=== PATIENT | female | born 1975 | race Two or more races ===

== ENCOUNTER 2017-12-02 17:09 | Emergency (ER) | payer OTHER ==
[2017-12-02] MEDS ORDERED: ONDANSETRON 4 MG/2 ML VIAL IVP ONE (18:42)
[2017-12-02] MEDS ORDERED: NS 1,000 ML IV ONE (18:54)
--- NOTE | 2017-12-02 18:59 | EDPHY ---
H & P Time Seen by Provider: 12/02/17 18:17 HPI/ROS: CHIEF COMPLAINT: Vaginal bleeding HISTORY OF PRESENT ILLNESS: Patient is a 39-year-old female with a history of vaginal bleeding in the past. She has had a bilateral tubal ligation. She has been placed on hormone therapy for intermittent vaginal bleeding. This episode of bleeding started 3 weeks ago. It has been fairly persistent. She is currently using 3 pads an hour. She is mildly lightheaded. No dizziness. No chest pain or shortness of breath. No abdominal pain. No nausea or vomiting. No dysuria or frequency. REVIEW OF SYSTEMS: My complete review of systems is negative except as mentioned in the HPI. Past Medical/Surgical History: Includes vaginal bleeding Past surgical history: Includes tubal ligation Social history: Patient does not smoke Smoking Status: Never smoked Physical Exam: 36.9, 98/80, 89, 16, 98% on room air GENERAL: Well-appearing, in no acute distress, alert. HEENT: Eyes normal to inspection, normal pharynx, no signs of dehydration. NECK: No thyromegaly, no lymphadenopathy, supple. RESPIRATORY: Clear to auscultation bilaterally, no rales, rhonchi or wheezing. CVS: Regular rate and rhythm, no rubs, murmurs, or gallops. ABDOMEN: Soft, nontender, nondistended, no organomegaly. BACK: Normal to inspection, no CVA tenderness. SKIN: Normal color, no rash, warm, dry. No pallor. EXTREMITIES: No pedal edema, no calf tenderness, no joint swelling. NEURO/PSYCH: Alert and oriented x3, normal mood and affect, normal motor sensory exam. Constitutional: Initial Vital Signs Temperature (C) 36.9 C 12/02/17 17:16 Heart Rate 89 12/02/17 17:16 Respiratory Rate 16 12/02/17 17:16 Blood Pressure 98/80 L 12/02/17 17:16 O2 Sat (%) 98 12/02/17 17:16 O2 Delivery Mode Room Air Allergies/Adverse Reactions: No Known Allergies Allergy (Unverified 09/19/15 12:35) Home Medications: Medication Instructions Recorded NK [No Known Home Meds] 09/19/15 Medical Decision Making - Diagnostics Imaging Results: Imaging Impressions Pelvic/Renal Ultrasound 12/02/17 18:55 Impression: 1. Ill-defined endometrium with mobile echogenic hemorrhagic debris. 2. Myometrial heterogeneity without a discretely measurable fibroid. 3. There is a 3.0 cm benign-appearing right ovarian cyst, with no evidence of torsion or free fluid. 4. Mild left-sided pelvic venous congestion. Findings were discussed with MARLA VALDEZ MD at 21:23, on 12/02/2017. ED Course/Re-evaluation: In the emergency department I discussed possible etiologies with the patient. I answered all her questions. qualitative field project manager was used. An IV was placed. Laboratory studies were ordered. I reviewed the patient's laboratory studies. The patient is anemic with hematocrit of 32. I compared this with a previous hematocri. It was 25. I rechecked the patient while here. She stated she had no pain. She was not lightheaded or dizzy. Ultrasound: Please refer the dictated report. Patient has a ill-defined endometrium with mobile echogenic hemorrhagic debris. There is also myometrial heterogeneity without a discrete measurable fibroid. There is a 3.0 cm benign appearing right ovarian cyst. No ovarian torsion or free fluid. Mild left- sided pelvic venous congestion. In the emergency department her repeat hematocrit was 29. I discussed the case with Gynecology. Pelvic exam: Patient has a normal external pelvic exam. No lesions. Speculum exam shows mild bleeding. Small amount of blood from the cervix. No lesions or mass. Bimanual exam: Normal, no tenderness to palpation bilaterally, normal ovaries bilaterally, normal uterus. I discussed disposition options with the patient. I recommended admission. Patient would prefer to be discharged home. I discussed the risks and benefits of this. The patient was given warnings. She will return with worsening symptoms. I discussed case with Dr. [place]. She will see the patient in follow-up. Differential Diagnosis: My differential includes but is not limited to vaginal bleeding, mass, malignancy, , anemia, coagulopathy - Data Points Laboratory Results: Laboratory Results 12/02/17 18:30 12/02/17 18:30 12/02/17 12/02/17 12/02/17 22:39 21:35 18:30 WBC RBC Hgb POC Hgb 9.9 gm/dL L gm/dL (12.6-16.3) Hct POC Hct 29 % L % (38-47) MCV MCH MCHC RDW Plt Count MPV Neut % (Auto) Lymph % (Auto) [place] % (Auto) Eos % (Auto) Baso % (Auto) Nucleat RBC Rel Count Absolute Neuts (auto) Absolute Lymphs (auto) Absolute Monos (auto) Absolute Eos (auto) Absolute Basos (auto) Absolute Nucleated RBC Immature Gran % Immature Gran # PT INR APTT POC Sodium 142 mEq/L mEq/L (135-145) Sodium POC Potassium 3.2 mEq/L L mEq/L (3.3-5.0) Potassium POC Chloride 107 mEq/L mEq/L (97-110) Chloride Carbon Dioxide Anion Gap POC BUN 15 mg/dL mg/dL (7-23) BUN Creatinine POC Creatinine 0.6 mg/dL mg/dL (0.6-1.0) Estimated GFR Glucose POC Glucose 88 mg/dL mg/dL (70-100) Calcium Beta HCG, Qual NEGATIVE Urine Color Pending Urine Appearance Pending Urine pH Pending Ur Specific [place] Pending Urine Protein Pending Urine Ketones Pending Urine Blood Pending Urine Nitrate Pending Urine Bilirubin Pending Urine Urobilinogen Pending Ur Leukocyte Esterase Pending Urine RBC Pending Urine WBC Pending Ur Epithelial Cells Pending Urine Glucose Pending 12/02/17 12/02/17 12/02/17 18:30 18:30 18:30 WBC 7.68 10^3/uL 10^3/uL (3.80-9.50) RBC 4.06 10^6/uL L 10^6/uL (4.18-5.33) Hgb 10.2 g/dL L g/dL (12.6-16.3) POC Hgb Hct 32.9 % L % (38.0-47.0) POC Hct MCV 81.0 fL L fL (81.5-99.8) MCH 25.1 pg L pg (27.9-34.1) MCHC 31.0 g/dL L g/dL (32.4-36.7) RDW 15.6 % H % (11.5-15.2) Plt Count 277 10^3/uL 10^3/uL (150-400) MPV 11.5 fL fL (8.7-11.7) Neut % (Auto) 55.6 % % (39.3-74.2) Lymph % (Auto) 37.5 % % (15.0-45.0) Harmon % (Auto) 4.7 % % (4.5-13.0) Eos % (Auto) 1.0 % % (0.6-7.6) Baso % (Auto) 0.8 % % (0.3-1.7) Nucleat RBC Rel Count 0.0 % % (0.0-0.2) Absolute Neuts (auto) 4.27 10^3/uL 10^3/uL (1.70-6.50) Absolute Lymphs (auto) 2.88 10^3/uL 10^3/uL (1.00-3.00) Absolute Monos (auto) 0.36 10^3/uL 10^3/uL (0.30-0.80) Absolute Eos (auto) 0.08 10^3/uL 10^3/uL (0.03-0.40) Absolute Basos (auto) 0.06 10^3/uL 10^3/uL (0.02-0.10) Absolute Nucleated RBC 0.00 10^3/uL 10^3/uL (0-0.01) Immature Gran % 0.4 % % (0.0-1.1) Immature Gran # 0.03 10^3/uL 10^3/uL (0.00-0.10) PT 13.2 SEC SEC (12.0-15.0) INR 0.98 (0.83-1.16) APTT 26.5 SEC SEC (23.0-38.0) POC Sodium Sodium 140 mEq/L mEq/L (135-145) POC Potassium Potassium 3.7 mEq/L mEq/L (3.5-5.2) POC Chloride Chloride 105 mEq/L mEq/L (97-110) Carbon Dioxide 25 mEq/l mEq/l (22-31) Anion Gap 10 mEq/L mEq/L (8-16) POC BUN BUN 15 mg/dL mg/dL (7-23) Creatinine 0.6 mg/dL mg/dL (0.6-1.0) POC Creatinine Estimated GFR > 60 Glucose 90 mg/dL mg/dL (70-100) POC Glucose Calcium 9.0 mg/dL mg/dL (8.5-10.4) Beta HCG, Qual Urine Color Urine Appearance Urine pH Ur Specific [place] Urine Protein Urine Ketones Urine Blood Urine Nitrate Urine Bilirubin Urine Urobilinogen Ur Leukocyte Esterase Urine RBC Urine WBC Ur Epithelial Cells Urine Glucose Medications Given: Discontinued Medications Sodium Chloride (Ns) 1,000 mls @ 0 mls/hr IV ONCE ONE PRN Reason: Wide Open Stop: 12/02/17 18:55 Last Admin: 12/02/17 18:56 Dose: 1,000 mls Ondansetron HCl (Zofran) 4 mg IVP EDNOW ONE Stop: 12/02/17 18:43 Last Admin: 12/02/17 18:55 Dose: 4 mg Point of Care Test Results: 12/02/17 21:35 POC Sodium 142 POC Potassium 3.2 L POC Chloride 107 POC BUN 15 POC Creatinine 0.6 POC Glucose 88 Departure - Departure Disposition: Home, Routine, Self-Care Clinical Impression: Vaginal bleeding Condition: Good Instructions: Vaginal Discharge (ED) Additional Instructions: Return to the emergency department with increased bleeding, lightheadedness, dizziness, shortness of breath or chest pain. You been given follow-up with the on-call residential appliance repair technician, Dr. Colorado Referrals: Viry Latham MD [Primary Care Provider] - As per Instructions Yanira Colorado MD [Medical Doctor] - 2-3 days, call for appt.
[2017-12-02 19:01] LABS: PLATELET COUNT 277 10^3/uL (150-400)
[2017-12-02 19:13] LABS: INR 0.98 (0.83-1.16); PROTIME(PATIENT) 13.2 SEC (12.0-15.0)
[2017-12-02 23:05] VITALS: BP 111/78
== END 2017-12-02 23:16 | disposition home or self-care (01) ==
DX: N93.9 Abnormal uterine and vaginal bleeding, unspecified (principal)
CPT/HCPCS: 82947-QW; 96374; J2405

== ENCOUNTER 2017-12-05 04:41 | Observation (INO) | payer OTHER ==
--- NOTE | 2017-12-05 04:59 | EDPHY ---
H & P Stated Complaint: Vaginal bleeding x3wks Time Seen by Provider: 12/05/17 04:47 HPI/ROS: HPI CHIEF COMPLAINT: Vaginal bleeding x3 weeks HISTORY OF PRESENT ILLNESS: Patient is a 42-year-old female she was recently here in the emergency room 3 days ago and seen evaluated for vaginal bleeding. At that time she was going through 3 pads an hour. Her hemoglobin at that time was 10.2/32.9, she had a vaginal exam as well as a pelvic ultrasound. She was offered admission however declined went home. She now presents back to the emergency room with ongoing vaginal bleeding. She is not on any blood thinners. She denies chest pain or shortness of breath. However patient does state that she feels globally weak. Fatigued. Additionally she reports that her bleeding has gotten more brisk. She states that at 1 point she was using 2 pads every 10 min. She woke up this evening with further heavy vaginal bleeding without any pelvic pain or abdominal pain. States she passed clot and blood ran down her legs. This prompted her to come to the emergency room. Of note this patient is Colombian-speaking only. Search Manager was used for history review of systems. Past Medical History: ?Dysfunctional uterine bleeding Past Surgical History: Tubal ligation Social History: Denies drugs alcohol tobacco products Family History: ROS REVIEW OF SYSTEMS: A comprehensive 10 point review of systems is otherwise negative aside from elements mentioned in the history of present illness. Exam Constitutional appears nontoxic, triage nursing summary reviewed, vital signs reviewed, awake/alert. Vital signs stable at triage Eyes normal conjunctivae and sclera, EOMI, PERRLA. HENT normal inspection, atraumatic, moist mucus membranes, no epistaxis, neck supple/ no meningismus, no raccoon eyes. Respiratory clear to auscultation bilaterally, normal breath sounds, no respiratory distress, no wheezing. Cardiovascular rate normal, regular rhythm, no murmur, no edema, distal pulses normal. Gastrointestinal soft, non-tender, no rebound, no guarding, normal bowel sounds, no distension, no pulsatile mass. Genitourinary no CVA tenderness. Musculoskeletal no midline vertebral tenderness, full range of motion, no calf swelling, no tenderness of extremities, no meningismus, good pulses, neurovascularly intact. Skin pink, warm, & dry, no rash, skin atraumatic. Neurologic awake, alert and oriented x 3, AAOx3, moves all 4 extremities equally, motor intact, sensory intact, CN II-XII intact, normal cerebellar, normal vision, normal speech. Psychiatric normal mood/affect. Heme/Lymph/Immune no lymphadenopathy. Differential Diagnosis: Includes but is not limited to in a particular order dysfunctional uterine bleeding, fibroid all bleeding, ectopic , acute blood loss anemia Medical Decision Making: Plan for this patient repeat blood work IV establishment with full media monitor, type and screen, good IV access, pelvic exam, pelvic ultrasound will consult OBGYN. Re-evaluation: 0532: Blood work is reviewed. H&H are low 6.6/21. Given how low this is in a rapid loss from previous ER visit 3 days ago I will consult OBGYN. 0538: Spoke with OBGYN doctor Stanislav, discussed the case in detail with her. I do recommend she gets admitted for vaginal bleeding. Dr. Colorado will come and see and evaluate her. 0546: Vital signs are stable. She is not hypotensive. She has 2 large-bore IVs. She has been typed and screened us pelvis: Small right ovarian cyst. Free fluid in the uterus. Endometrium 7 mm. Otherwise unremarkable pelvic ultrasound. Called to me by Dr. Harkins. Patient be admitted to the hospital for vaginal bleeding with a low H&H. She may need blood transfusion. At this time she is not hypotensive. She is resting comfortably without any abdominal pain. Spoke with the OBGYN on-call Dr. Colorado who agrees to admit. I did perform a external vaginal exam. No significant bleeding at this time. Mis RN at bedside. Source: Patient - Personal History LMP (Females 10-55): Now Current Tetanus Diphtheria and Acellular Pertussis (TDAP): Yes - Medical/Surgical History Hx Asthma: No Hx Chronic Respiratory Disease: No Hx Diabetes: No Hx Cardiac Disease: No Hx Renal Disease: No Hx Cirrhosis: No Hx Alcoholism: No Hx HIV/AIDS: No Hx Splenectomy or Spleen Trauma: No Other PMH: "surgery to not have children" - Social History Smoking Status: Never smoked Constitutional: Initial Vital Signs Temperature (C) 36.8 C 12/05/17 04:42 Heart Rate 89 12/05/17 04:42 Respiratory Rate 18 12/05/17 04:42 Blood Pressure 112/66 12/05/17 04:42 O2 Sat (%) 99 12/05/17 04:42 O2 Delivery Mode Room Air Allergies/Adverse Reactions: No Known Allergies Allergy (Verified 12/05/17 04:42) Home Medications: Medication Instructions Recorded Herbals/Supplements -Info Only 1 ea PO DAILY 12/05/17 Hydrocodone/APAP 5/325 [[place] 1 - 2 tab PO Q4HRS PRN #14 tab 12/05/17 5/325 (*)] Ibuprofen [Motrin (*)] 200 mg PO DAILY PRN 12/05/17 Iron Polysacch/Iron Heme Polyp 28 mg PO TID #90 tab 12/05/17 [Bifera] Medical Decision Making - Diagnostics Imaging Results: Imaging Impressions Pelvic/Renal Ultrasound 12/05/17 04:49 Impression: 1. 2.4 cm simple appearing cyst left ovary without evidence for torsion. 2. Minimal hemorrhagic debris in the endometrial cavity. Results called and discussed with Zane Montalvo MD at 12/05/2017 0548 hours. Final interpretation concurs with initial preliminary operations engineer radiologist impression. - Data Points Laboratory Results: Laboratory Results 12/05/17 05:00 12/05/17 05:00 12/05/17 05:00 Patient ABO/Rh O POSITIVE Antibody Screen NEGATIVE Crossmatch IS Only See Detail Medications Given: Discontinued Medications Acetaminophen (Tylenol) 650 mg PO Q4HRS PRN PRN Reason: Pain, Mild/Fever, Can Take PO Stop: 06/03/18 07:24 Last Admin: 12/05/17 20:13 Dose: 650 mg Hydrocodone Bitart/Acetaminophen ([place] 5/325) 1 - 2 tab PO Q4HRS PRN PRN Reason: Pain, Moderate Able to Take PO Stop: 12/15/17 14:33 Last Admin: 12/05/17 18:41 Dose: 1 tab Belladonna Alkaloids/Opium (B & O) Confirm Administered Dose 1 each [place] .STK-MED ONE Stop: 12/05/17 13:46 Last Admin: 12/05/17 13:50 Dose: 1 each Bupivacaine HCl (Sensorcaine 0.25% Sdv) Confirm Administered Dose 30 ml .ROUTE .STK-MED ONE Stop: 12/05/17 11:41 Last Admin: 12/05/17 14:34 Dose: 30 ml Epinephrine HCl (Epinephrine) Confirm Administered Dose 1 mg .ROUTE .STK-MED ONE Stop: 12/05/17 11:42 Last Admin: 12/05/17 13:34 Dose: 1 mg Tranexamic Acid 1,300 mg/ (Sodium Chloride) 63 mls @ 300 mls/hr IV ONCALL ONE Stop: 12/05/17 07:15 Last Admin: 12/05/17 15:41 Dose: Not Given Lactated Ringer's (Lr) 1,000 mls @ 0 mls/hr IV ONCE ONE PRN Reason: As Directed Stop: 12/05/17 12:04 Last Admin: 12/05/17 18:38 Dose: Not Given Oxycodone HCl (Oxycontin) 10 mg PO ONCALL ONE Stop: 12/05/17 11:59 Last Admin: 12/05/17 15:42 Dose: Not Given Polysaccharide Iron Complex (Bifera) 28 mg PO TID [facility] Stop: 06/03/18 15:59 Last Admin: 12/05/17 18:05 Dose: 28 mg Departure - Departure Disposition: [facility] Clinical Impression: Vaginal bleeding, Blood loss anemia Condition: Fair
[2017-12-05 05:24] LABS: PLATELET COUNT 242 10^3/uL (150-400)
[2017-12-05 05:28] LABS: INR 0.99 (0.83-1.16); PROTIME(PATIENT) 13.3 SEC (12.0-15.0)
[2017-12-05] MEDS ORDERED: NS IV ONE (07:03)
[2017-12-05] MEDS ORDERED: TRANEXAMIC ACID IV ONE (07:03)
--- NOTE | 2017-12-05 07:21 | PDGENHP ---
History and Physical - Chief Complaint vaginal bleeding - History of Present Illness 42 year old here with vaginal bleeding. Sheet Manufacturing Supervisor over the phone used - delay and difficult. She was seen in the ED 3 d ago for vaginal bleeding, and her H/H were 10.2/32.9 , today they are 6.6/21.7. Per pt and - she had irregular bleeding, so had Nexplanon placed at [facility] 05/2017. Since then, has had mostly monthly menses, until middle of October - menses started and has not stopped. Currently is having a lot of cramping. Had a TL with her last C/S for contraception. History Information - Allergies/Home Medication List Allergies/Adverse Reactions: No Known Allergies Allergy (Verified 12/05/17 04:42) Home Medications: Ibuprofen 12/05/17 [Last Taken Unknown] I have personally reviewed and updated: medical history, social history, surgical history Past Medical History: noncontributory. Denies any medical - Past Medical History no pertinent PMH - Surgical History Additional surgical history: C/S x 2, last one with tubal ligation - Social History Smoking Status: Never smoked Alcohol Use: Occasionally Drug Use: None Additional social history: , 4 living children between age 7 and 20, one child Review of Systems Review of Systems: ROS: 10pt was reviewed & negative except for what was stated in HPI & below Physical Exam Physical Exam: gen - pleasant, NAD, Malagasy speaking only pelvic - NEFG vagina - pink, no lesions, 3cm clot present cervix - parous, no lesions, sm amt blood through os Uterus - difficult to outline 2/2 body habitus adnexa - not palpable due to body habitus L arm - Nexplanon palpable in normal location subQ US - see report, images reviewed - empty uterus, endometrial stripe 8mm 1.7cm R ov cyst Temp Pulse Resp BP Pulse Ox 36.8 C 81 18 100/61 98 12/05/17 06:22 12/05/17 06:22 12/05/17 06:22 12/05/17 06:22 12/05/17 06:22 Constitutional: no apparent distress Ears, Nose, Mouth, Throat: moist mucous membranes Cardiovascular: regular rate and rhythym Respiratory: no respiratory distress Gastrointestinal: normoactive bowel sounds Genitourinary: no bladder fullness Skin: warm, normal color Musculoskeletal: full muscle strength Psychiatric: interacting appropriately Lab Data & Imaging Review 12/05/17 05:00 12/05/17 05:00 WBC 3.99 10^3/uL (3.80-9.50) 12/05/17 05:00 RBC 2.63 10^6/uL (4.18-5.33) L 12/05/17 05:00 Hgb 6.6 g/dL (12.6-16.3) L 12/05/17 05:00 Hct 21.7 % (38.0-47.0) L D 12/05/17 05:00 MCV 82.5 fL (81.5-99.8) 12/05/17 05:00 MCH 25.1 pg (27.9-34.1) L 12/05/17 05:00 MCHC 30.4 g/dL (32.4-36.7) L 12/05/17 05:00 RDW 16.1 % (11.5-15.2) H 12/05/17 05:00 Plt Count 242 10^3/uL (150-400) 12/05/17 05:00 MPV 11.5 fL (8.7-11.7) 12/05/17 05:00 Neut % (Auto) 39.2 % (39.3-74.2) L 12/05/17 05:00 Lymph % (Auto) 51.9 % (15.0-45.0) H 12/05/17 05:00 [place] % (Auto) 5.3 % (4.5-13.0) 12/05/17 05:00 Eos % (Auto) 2.3 % (0.6-7.6) 12/05/17 05:00 Baso % (Auto) 1.0 % (0.3-1.7) 12/05/17 05:00 Nucleat RBC Rel Count 0.0 % (0.0-0.2) 12/05/17 05:00 Absolute Neuts (auto) 1.57 10^3/uL (1.70-6.50) L 12/05/17 05:00 Absolute Lymphs (auto) 2.07 10^3/uL (1.00-3.00) 12/05/17 05:00 Absolute Monos (auto) 0.21 10^3/uL (0.30-0.80) L 12/05/17 05:00 Absolute Eos (auto) 0.09 10^3/uL (0.03-0.40) 12/05/17 05:00 Absolute Basos (auto) 0.04 10^3/uL (0.02-0.10) 12/05/17 05:00 Absolute Nucleated RBC 0.00 10^3/uL (0-0.01) 12/05/17 05:00 Immature Gran % 0.3 % (0.0-1.1) 12/05/17 05:00 Immature Gran # 0.01 10^3/uL (0.00-0.10) 12/05/17 05:00 Platelet Estimate ADEQUATE (ADEQ) 12/05/17 05:00 Hypochromasia 2+ H 12/05/17 05:00 Microcytic Cells 1+ H 12/05/17 05:00 PT 13.3 SEC (12.0-15.0) 12/05/17 05:00 INR 0.99 (0.83-1.16) 12/05/17 05:00 APTT 24.8 SEC (23.0-38.0) 12/05/17 05:00 Sodium 144 mEq/L (135-145) 12/05/17 05:00 Potassium 3.7 mEq/L (3.5-5.2) 12/05/17 05:00 Chloride 111 mEq/L (97-110) H 12/05/17 05:00 Carbon Dioxide 24 mEq/l (22-31) 12/05/17 05:00 Anion Gap 9 mEq/L (8-16) 12/05/17 05:00 BUN 15 mg/dL (7-23) 12/05/17 05:00 Creatinine 0.6 mg/dL (0.6-1.0) 12/05/17 05:00 Estimated GFR > 60 12/05/17 05:00 Glucose 97 mg/dL (70-100) 12/05/17 05:00 Calcium 8.5 mg/dL (8.5-10.4) 12/05/17 05:00 Beta HCG, Qual NEGATIVE 12/05/17 05:00 Urine Color YELLOW 12/05/17 05:15 Urine Appearance TURBID 12/05/17 05:15 Urine pH 5.0 (5.0-7.5) 12/05/17 05:15 Ur Specific [place] 1.027 (1.002-1.030) 12/05/17 05:15 Urine Protein 2+ (NEGATIVE) H 12/05/17 05:15 Urine Ketones NEGATIVE (NEGATIVE) 12/05/17 05:15 Urine Blood 3+ (NEGATIVE) H 12/05/17 05:15 Urine Nitrate NEGATIVE (NEGATIVE) 12/05/17 05:15 Urine Bilirubin NEGATIVE (NEGATIVE) 12/05/17 05:15 Urine Urobilinogen NEGATIVE EU (0.2-1.0) 12/05/17 05:15 Ur Leukocyte Esterase NEGATIVE (NEGATIVE) 12/05/17 05:15 Urine RBC 50-182 /hpf (0-3) H 12/05/17 05:15 Urine WBC 1-3 /hpf (0-3) 12/05/17 05:15 Ur Epithelial Cells NONE SEEN /lpf (NONE-1+) 12/05/17 05:15 Urine Mucus 1+ /lpf (NONE-1+) 12/05/17 05:15 Urine Glucose NEGATIVE (NEGATIVE) 12/05/17 05:15 Patient ABO/Rh O POSITIVE 12/05/17 05:00 Antibody Screen NEGATIVE 12/05/17 05:00 Imaging Review: US reviewed - endometrial stripe 0.4 - 0.7cm. R ov cyst < 2 cm Assessment & Plan Assessment: Blood loss anemia (Acute) Vaginal bleeding (Acute) 42 yo Malagasy speaking only with vaginal bleeding causing anemia. Nexplanon in place x 6 months. No obvious uterine pathology. Plan: Admit, NPO, iv fluids. Repeat CBC 3 hours after first draw. If continuing to drop, will likely proceed with hysteroscopy D&C in the OR. And removal of Nexplanon as desired. Report given to Dr. Cameron. Recommended paging in person human insights lead ads marketing who will be available now, as mangle catcher used over the phone was very challenging.
[2017-12-05] MEDS ORDERED: ONDANSETRON DISINTEGRATING 4 MG TAB PO PRN (07:25)
[2017-12-05] MEDS ORDERED: ONDANSETRON 4 MG/2 ML VIAL IVP PRN ×2 (07:25→13:45)
[2017-12-05] MEDS ORDERED: NS 1,000 ML IV SCH ×2 (07:30→16:00)
[2017-12-05 08:38] LABS: PLATELET COUNT 216 10^3/uL (150-400)
[2017-12-05] MEDS: ACETAMINOPHEN 325 MG TAB PO PRN ×2 (09:00→20:13)
[2017-12-05] MEDS ORDERED: BUPIVACAINE 0.25% 30 ML SDV ONE (11:40)
--- NOTE | 2017-12-05 11:57 | PDHPUP ---
History & Physical Update H&P update statement: This history and physical update is based on an assessment of the patient which was completed after admission or registration (within 24 hours), but prior to the surgery/procedure. I spoke to Humera this morning with the help of an forms examiner with her present. We reviewed her repeat labs from this morning which showed her H/H continuing to drop newly to 6.2. We reviewed options ranging from hormonal treatments, to D&C, to D&C plus ablation or Mirena to help further control bleeding. She is interested in D&C with ablation which I think is a good option for her. Will remove Nexplanon in the OR, perform diagnostic hysteroscopy, endometrial sampling/D&C and Sherie endometrial ablation. Pelvic US grossly normal. We do not currently have EBX preop, but I think her active hemorrhage precludes out ability to get that and delay this procedure. RBA discussed and consents signed in person. Will check H/H postop and see what she may need in terms of transfusion. No abx needed. Has been NPO since 5pm 12/04/17. H&P update: H&P reviewed & patient examined, changes noted
[2017-12-05] MEDS ORDERED: LR 1,000 ML IV ONE (12:03)
--- NOTE | 2017-12-05 12:27 | PDANEPAE ---
ANE History of Present Illness 42 year old female for hysteroscopy w/ D&C. ANE Past Medical History - Cardiovascular History Hx Hypertension: No Hx Arrhythmias: No Hx Chest Pain: No Hx Coronary Artery / Peripheral Vascular Disease: No Hx CHF / Valvular Disease: No Hx Palpitations: No - Pulmonary History Hx COPD: No Hx Asthma/Reactive Airway Disease: No Hx Recent Upper Respiratory Infection: No Hx Oxygen in Use at Home: No Hx Sleep Apnea: No Sleep Apnea Screening Result - Last Documented: Negative - Endocrine History Hx Diabetes: No Hypothyroid: No Hyperthyroid: No Obesity: yes, moderate - Renal History Hx Renal Disorders: No - Liver History Hx Hepatic Disorders: No - Neurological & Psychiatric Hx Hx Neurological and Psychiatric Disorders: No - Congenital Disorder History Hx Congenital Disorders: No - GI History GERD: mild Hx Gastrointestinal Disorders: Yes ANE Review of Systems Review of systems is: negative Review of Systems: - Exercise capacity Exercise capacity: >=4 METS ANE Patient History - Allergies Allergies/Adverse Reactions: No Known Allergies Allergy (Verified 12/05/17 04:42) - Home Medications Home medications: home medication list seen and reviewed Home Medications: Herbals/Supplements -Info Only 1 ea PO DAILY 12/05/17 [Last Taken Unknown] Ibuprofen [Motrin (*)] 200 mg PO DAILY PRN 12/05/17 [Last Taken Unknown] - NPO status NPO Status: no food or drink >8 hours NPO Since - Liquids (Date): 12/05/17 NPO Since - Solids (Date): 12/04/17 NPO Since - Solids (Time): 17:00 - Anes Hx Anes Hx: no prior problems - Smoking Hx Smoking Status: Never smoked Marijuana use: No - Alcohol Use Alcohol Use: Occasionally - Family Anes Hx Family Anes Hx: neg - N/A ANE Labs/Vital Signs - Labs Result Diagrams: 12/05/17 08:30 12/05/17 05:00 - Vital Signs Vital Signs: reviewed preoperatively; see RN documention for details Blood Pressure: 106/59 Heart Rate: 86 Respiratory Rate: 14 O2 Sat (%): 96 Height: 160.02 cm Weight: 87.997 kg ANE Physical Exam - Airway Neck exam: FROM Mallampati Score: Class 1 Mouth exam: normal dental/mouth exam Mouth image: 1 - Capped - Pulmonary Pulmonary: no respiratory distress - Cardiovascular Cardiovascular: regular rate and rhythym - ASA Status ASA Status: II ANE Anesthesia Plan Anesthesia Plan: general endotracheal anesthesia Total IV Anesthesia: No
[2017-12-05] MEDS ORDERED: fentaNYL 100 MCG/2 ML INJ ONE (12:55)
[2017-12-05] MEDS ORDERED: PROPOFOL 200 MG/20 ML VIAL ONE (12:56)
[2017-12-05] MEDS ORDERED: LIDOCAINE 2% 5 ML SDV ONE (13:05)
[2017-12-05] MEDS ORDERED: ROCURONIUM 50 MG/5 ML VIAL ONE (13:05)
[2017-12-05] MEDS ORDERED: PHENYLEPHRINE HCL 100 MCG/ML SYR ONE (13:05)
[2017-12-05] MEDS ORDERED: HYDROmorphONE/DILAUDID 1 MG/ML INJ IVP PRN (13:45)
[2017-12-05] MEDS ORDERED: LR 500 ML IV PRN (13:45)
[2017-12-05] MEDS ORDERED: fentaNYL 100 MCG/2 ML INJ IVP PRN (13:45)
[2017-12-05] MEDS ORDERED: oxyCODONE IR 5 MG TAB PO PRN (13:45)
[2017-12-05] MEDS ORDERED: ACETAMINOPHEN 500 MG TAB PO PRN (13:45)
[2017-12-05] MEDS ORDERED: NALOXONE HCL 0.4 MG/ML INJ IVP PRN (13:45)
[2017-12-05] MEDS ORDERED: OPIUM/BELLADONNA ALKALO SUPP PR ONE (13:45)
--- NOTE | 2017-12-05 14:17 | SUROPNOTE ---
[facility] Operative Report - Surgery Date of Operation: 12/05/17 Surgeon: Kevin Cameron Body And Frame Man: None Anesthesia: GET(General Endotracheal) Pre-op Diagnosis: Menorrhagia, Acute blood loss anemia Post-op Diagnosis: Same Procedure: Dx hysteroscopy, Endometrial sampling, Sherie ablation, Nexplanon removal Findings: Nml cavity, no fibroid or polyp, Nexplanon easily palpable upper left ar Inf/Abcess present in the surg proc area at time of surgery?: No EBL: Minimal Complications: None Specimen(s): Endometrial sampling Technique: The patient was taken to the operating room where her identity and planned procedure were confirmed during timeout. The patient was placed under general anesthesia without issue. When anesthesia was found to be adequate, the patient was prepped and draped in the normal sterile fashion in dorsal lithotomy position in Genaro stirrups. No antibiotics were indicated nor given. The patient was straight cath'd for 50cc prior to procedure. [place] speculum placed in the vagina and anterior lip of the cervix grasped with single-tooth tenaculum. A paracervical block was placed with 5cc of local anesthetic with epi at each 4:00 and 8:00 locations at the cervico-vaginal junction - 10cc total. The cervix was carefully serially dilated first to allow uterine sound measurement, then to 6mm to allow TruClear hysteroscope. Dilation proceeded easily with no concerns for injury to the uterus. Scope inserted and findings noted as above. The TruClear device was used to remove any polypoid lesions and sample other surrounding endometrium. The scope was removed and prepared for ablation. A Jessica dilator was then advanced to the inner cervical os to measure the cervical length. The Sherie device was inserted to the fundus and cavity assessment initiated and passed. Treatment cycle initiated and full 120 seconds completed - successful ablation cycle. The hysteroscope was reinserted following ablation and confirmed uniform burn on all surfaces. The tenaculum was removed from the cervix and the tenaculum sites were found to be hemostatic. Sponge, lap, needle , and instrument counts were announced as as correct. B&O suppository placed at the conclusion. Lastly, we prepped and separately draped the upper left arm for Nexplanon removal. The implant was easily palpable in appropriate location. Area under the distal tip was infiltrated with local anesthetic and #11 blade scalpel used to make 1mm incision and dissect to find tip of implant. Removed intact with ease. Defect closed with steri strip and Coband pressure dressing. Case concluded. I was scrubbed and present for the entire procedure.
[2017-12-05] MEDS ORDERED: IRON POLYSAC/IRON HEME 28 MG TAB PO SCH (16:00)
[2017-12-05] MEDS: HYDROCODONE/APAP 5/325 TAB PO PRN ×2 (17:56→18:41)
[2017-12-05 18:20] VITALS: BP 84/56
--- NOTE | 2017-12-05 22:57 | POSTANESTH ---
Post Anesthetic Evaluation Cardiovascular Status: Normal, Stable, Similar to Pre-Op Cond Respiratory Status: Normal, Stable, Similar to Pre-op Cond. Level of Consciousness/Mental Status: Can Participate in Eval, Alert and Oriented Pain Control: Adequate, Prn Tx Ordered Nausea/Vomiting Control: Adequate, Prn Tx Ordered Complications Possibly Related to Anesthesia: None Noted
== END 2017-12-05 20:30 | disposition home or self-care (01) ==
LOC: INTOOBSV 05:38 → FOB 07:20
PROVIDERS: ADMIT Hospitalist; ATTEND Hospitalist
DX: N92.0 Excessive and frequent menstruation with regular cycle (principal); D62 Acute posthemorrhagic anemia
CPT/HCPCS: C1782; G0378; J0171; J2370; J2704; J3010; P9016